=== PATIENT | female | born 1960 | race Caucasian/White ===

== ENCOUNTER → 2021-12-19 | Outpatient (CLI) | payer OTHER ==
[~2021-12-19] MED LIST: ANAPROX DS550 MG PO; ANTIVERT25 MG PO; ASPIRIN81 MG PO; ATIVAN0.5 MG PO; AUGMENTIN 875 M1 TAB PO; BACTRIM DS 8001 TA1 PO; CEFUROXIME AXE250 MG PO; CLARITIN10 MG PO; DAYPRO600 M1 PO; DEXILANT60 M1 PO; FLONASE0.05 MG/AC NS; IRON325 M1 PO; KEFTAB500 MG PO; KLOR-CON M1010 MEQ PO; LISINOPRIL HCTZ1 TA1 PO; MELOXICAM7.5 MG; METOPROLOL50 MG PO; MOTRIN800 MG PO; PRAVASTATIN SOD40 MG PO; PROTONIX40 MG PO; PYRIDIUM200 MG PO; SKELAXIN800 MG PO; VICODIN 5/500 505 MG PO; ZANTAC 150150 MG PO; ZITHROMAX Z PA250 MG PO; ZOFRAN ODT8 MG PO
== END | disposition home or self-care (01) ==
LOC: MAMMO 17:00
PROVIDERS: ATTEND Family Medicine
DX: Z12.31 Encounter for screening mammogram for malignant neoplasm of breast (principal)

== ENCOUNTER 2023-09-12 17:51 | Inpatient (IN) | payer OTHER ==
[~2023-09-12] VITALS: Ht 172.7 cm; Wt 81.6 kg
[2023-09-12 18:03] VITALS: BP 162/84
[2023-09-12] MEDS ORDERED: LISINOPRIL10 M1 PO (18:07)
[2023-09-12] MEDS ORDERED: VITAMIN D250 MCG PO (18:08)
[2023-09-12] MEDS ORDERED: ASPIRIN81 M1 PO (18:08)
[2023-09-12] MEDS ORDERED: Ondansetron Hydrochloride 4 MG/2 ML VIAL IV ONE (18:20)
[2023-09-12] MEDS ORDERED: SODIUM CHLORIDE 0.9% 1,000 ML IV SCH (18:20)
[2023-09-12 18:35] LABS: BILIRUBIN Negative (Negative); BLOOD 2+ (Negative); CLARITY Clear (Clear); COLOR Dark Yellow (Yellow); GLUCOSE Negative (Negative); KETONE Trace (Negative); LEUKO ESTERASE Trace (Negative); NITRITE Negative (Negative); SPECIFIC GRAVITY >= 1.030 (1.001-1.030)
[2023-09-12 18:43] LABS: CALCIUM OXALATE CRYSTALS 1+; MUCOUS 1+
[2023-09-12 18:55] LABS: BASO # 0.1 10*3/uL (0.0-0.1); BASO % 0.4 % (0.0-1.0); EOS # 0.1 10*3/uL (0.0-0.4); EOS % 0.6 % (1.0-4.0); HEMATOCRIT 40.3 % (37.0-47.0); LYMPH # 2.3 10*3/uL (1.3-4.4); MEAN CELL VOLUME 87.4 fl (81.0-99.0); MEAN CORPUSCULAR HGB 28.9 pg (27.0-31.0); MEAN PLATELET VOLUME 9.7 fl (9.6-12.3); MONO # 0.9 10*3/uL (0.1-1.0); MONO % 5.8 % (3.0-9.0); NEUT # 11.3 10*3/uL (2.3-7.9); NEUT % 76.9 % (47.0-73.0); PLATELET COUNT AUTOMATED 230 10*3/uL (130-400); RED BLOOD COUNT 4.61 10*6/uL (4.10-5.10); RED CELL DISTRI WIDTH 12.8 % (0-14.5); WHITE BLOOD COUNT 14.7 10*3/uL (4.8-10.8)
[2023-09-12 19:08] LABS: ACT PARTIAL THROMBO TIME 29.3 SECONDS (20.0-32.1)
[2023-09-12 19:17] LABS: ALKALINE PHOSPHATASE 71 U/L (46-116); BUN 15 mg/dl (9-23); CHLORIDE 107 mmol/L (98-107); LIPASE 27 U/L (12-53); POTASSIUM 3.5 mmol/L (3.4-5.1); SGPT/ALT 21 U/L (5-49); TOTAL PROTEIN 7.2 gm/dL (6.0-8.0)
[2023-09-12] MEDS ORDERED: Ceftriaxone Sodium 1 GM/10 ML SYR IV ONE (20:40)
[2023-09-12] MEDS ORDERED: Ondansetron Hydrochloride 4 MG/2 ML VIAL IV PRN (21:40)
[2023-09-12] MEDS ORDERED: MORPHINE Sulfate 2 MG/ML SYR IV PRN (21:40)
[2023-09-12] MEDS ORDERED: SODIUM CHLORIDE 0.9% 500 ML IV ONE (21:40)
[2023-09-12] MEDS ORDERED: TEMAZEPAM 15 MG CAP PO PRN (21:40)
[2023-09-12] MEDS ORDERED: Magnesium Hydroxide 30 ML UDC PO PRN (21:40)
[2023-09-12] MEDS ORDERED: Acetaminophen/Hydrocodone 5 MG/325 MG TABLET PO PRN (21:40)
[2023-09-12] MEDS ORDERED: BISACODYL 5 MG TAB PO PRN (21:40)
[2023-09-12] MEDS ORDERED: ACETAMINOPHEN 325 MG TAB PO PRN (21:40)
[2023-09-12] MEDS ORDERED: SODIUM CHLORIDE 0.9% 1,000 ML IV ONE (21:40)
[2023-09-13] VITALS: BP 131/64
[2023-09-13 05:41] LABS: ALKALINE PHOSPHATASE 62 U/L (46-116); BUN 12 mg/dl (9-23); CHLORIDE 111 mmol/L (98-107); POTASSIUM 3.8 mmol/L (3.4-5.1); SGPT/ALT 20 U/L (5-49); TOTAL PROTEIN 6.3 gm/dL (6.0-8.0)
[2023-09-13 05:54] VITALS: BP 131/57
[2023-09-13 05:58] LABS: BASO # 0.1 10*3/uL (0.0-0.1); BASO % 0.6 % (0.0-1.0); EOS # 0.3 10*3/uL (0.0-0.4); EOS % 2.7 % (1.0-4.0); HEMATOCRIT 35.3 % (37.0-47.0); LYMPH # 2.3 10*3/uL (1.3-4.4); LYMPH % 23.3 % (27.0-41.0); MEAN CELL VOLUME 87.8 fl (81.0-99.0); MEAN CORPUSCULAR HGB 29.4 pg (27.0-31.0); MEAN CORPUSCULAR HGB CONC 33.4 g/dl (33.0-37.0); MEAN PLATELET VOLUME 10.4 fl (9.6-12.3); MONO # 0.6 10*3/uL (0.1-1.0); MONO % 5.7 % (3.0-9.0); NEUT # 6.7 10*3/uL (2.3-7.9); NEUT % 67.3 % (47.0-73.0); PLATELET COUNT AUTOMATED 207 10*3/uL (130-400); RED BLOOD COUNT 4.02 10*6/uL (4.10-5.10); WHITE BLOOD COUNT 9.9 10*3/uL (4.8-10.8)
[2023-09-13 08:38] VITALS: BP 134/64
[2023-09-13] MEDS ORDERED: Metoprolol Tartrate 50 MG TAB PO SCH (10:00)
[2023-09-13] MEDS ORDERED: Enoxaparin Sodium 40 MG/0.4 ML SYR SC SCH (10:00)
[2023-09-13] MEDS ORDERED: Pantoprazole Sodium 40 MG TAB PO SCH (10:00)
[2023-09-13] MEDS ORDERED: LISINOPRIL 10 MG TAB PO SCH (10:00)
[2023-09-13] MEDS ORDERED: SIMVASTATIN 20 MG TAB PO SCH (10:00)
[2023-09-13] MEDS ORDERED: Cholecalciferol 2,000 UNIT TABLET (50 MCG) PO SCH (10:00)
[2023-09-13] MEDS ORDERED: ASPIRIN ENTERIC COATED 81 MG TAB PO SCH (10:00)
[2023-09-13 11:42] VITALS: BP 124/60
[2023-09-13 17:24] VITALS: BP 132/64
[2023-09-13 20:00] VITALS: BP 104/58
[2023-09-13] MEDS ORDERED: Ceftriaxone Sodium 1 GM in SYRINGE INFUSION 10 ML IV SCH (20:00)
[2023-09-14] VITALS: BP 141/65
[2023-09-14 04:22] LABS: BASO # 0.1 10*3/uL (0.0-0.1); BASO % 0.8 % (0.0-1.0); EOS # 0.4 10*3/uL (0.0-0.4); EOS % 5.5 % (1.0-4.0); LYMPH # 2.5 10*3/uL (1.3-4.4); LYMPH % 35.3 % (27.0-41.0); MEAN CELL VOLUME 88.7 fl (81.0-99.0); MEAN CORPUSCULAR HGB 28.8 pg (27.0-31.0); MEAN CORPUSCULAR HGB CONC 32.4 g/dl (33.0-37.0); MEAN PLATELET VOLUME 9.8 fl (9.6-12.3); MONO # 0.5 10*3/uL (0.1-1.0); MONO % 6.6 % (3.0-9.0); NEUT # 3.7 10*3/uL (2.3-7.9); NEUT % 51.7 % (47.0-73.0); PLATELET COUNT AUTOMATED 218 10*3/uL (130-400); RED BLOOD COUNT 4.17 10*6/uL (4.10-5.10); RED CELL DISTRI WIDTH 13.1 % (0-14.5); WHITE BLOOD COUNT 7.1 10*3/uL (4.8-10.8)
[2023-09-14 04:47] LABS: BUN 9 mg/dl (9-23); CHLORIDE 109 mmol/L (98-107); POTASSIUM 4.2 mmol/L (3.4-5.1)
[2023-09-14 08:00] VITALS: BP 120/54
[2023-09-14] MEDS ORDERED: AMOX-CLAV 875-1 EACH PO (13:00)
[2023-09-16] MEDS ORDERED: NITROFURANTOIN100 M8 PO (14:01)
== END 2023-09-14 13:18 | disposition home or self-care (01) | DRG 872 ==
LOC: ED 17:51 → EDHOLD 20:48 → 5E 09-13 17:05
PROVIDERS: Emergency Medicine; Internal Medicine; ADMIT Student in an Organized Health Care Education/Training Program; ATTEND Student in an Organized Health Care Education/Training Program
DX: A41.9 Sepsis, unspecified organism (principal); N39.0 Urinary tract infection, site not specified; R31.9 Hematuria, unspecified; R73.9 Hyperglycemia, unspecified; R31.29 Other microscopic hematuria; I10 Essential (primary) hypertension; E78.5 Hyperlipidemia, unspecified; K21.9 Gastro-esophageal reflux disease without esophagitis; Z90.710 Acquired absence of both cervix and uterus; Z90.49 Acquired absence of other specified parts of digestive tract; Z83.3 Family history of diabetes mellitus; Z82.3 Family history of stroke; Z79.82 Long term (current) use of aspirin; Z79.899 Other long term (current) drug therapy; Z88.1 Allergy status to other antibiotic agents

== ENCOUNTER 2023-11-18 22:31 | Emergency (ER) | payer OTHER ==
[~2023-11-18] VITALS: Ht 172.7 cm; Wt 86.2 kg
[~2023-11-18 22:31] MED LIST changes: +AMOX-CLAV 875-1 EACH PO; +ASPIRIN81 M1 PO; +LISINOPRIL10 M1 PO; +NITROFURANTOIN100 M8 PO; +VITAMIN D250 MCG PO
[2023-11-18 22:41] VITALS: BP 147/83
[2023-11-18 23:14] LABS: BASO % 0.7 % (0.0-1.0); EOS # 0.2 10*3/uL (0.0-0.4); EOS % 3.2 % (1.0-4.0); HEMATOCRIT 39.5 % (37.0-47.0); LYMPH # 2.6 10*3/uL (1.3-4.4); LYMPH % 43.9 % (27.0-41.0); MEAN CELL VOLUME 87.2 fl (81.0-99.0); MEAN CORPUSCULAR HGB 28.7 pg (27.0-31.0); MEAN CORPUSCULAR HGB CONC 32.9 g/dl (33.0-37.0); MEAN PLATELET VOLUME 9.8 fl (9.6-12.3); MONO # 0.4 10*3/uL (0.1-1.0); MONO % 6.7 % (3.0-9.0); NEUT # 2.7 10*3/uL (2.3-7.9); NEUT % 45.3 % (47.0-73.0); PLATELET COUNT AUTOMATED 230 10*3/uL (130-400); RED BLOOD COUNT 4.53 10*6/uL (4.10-5.10); WHITE BLOOD COUNT 5.9 10*3/uL (4.8-10.8)
[2023-11-18 23:35] LABS: ALKALINE PHOSPHATASE 72 U/L (46-116); BUN 15 mg/dl (9-23); CHLORIDE 110 mmol/L (98-107); LIPASE 41 U/L (12-53); POTASSIUM 3.5 mmol/L (3.4-5.1); SGPT/ALT 15 U/L (5-49); TOTAL PROTEIN 7.1 gm/dL (6.0-8.0)
[2023-11-18] MEDS ORDERED: MG-AL HYDROXIDE/SIMETICONE 30 ML UDC PO STA (23:49)
[2023-11-18] MEDS ORDERED: Dicyclomine Hydrochloride 20 MG/10 ML OSYR PO STA (23:49)
[2023-11-18] MEDS ORDERED: Lidocaine Hydrochloride 15 ML UDC PO STA (23:49)
== END 2023-11-19 00:36 | disposition home or self-care (01) ==
LOC: ED 22:31
PROVIDERS: Internal Medicine
DX: K21.9 Gastro-esophageal reflux disease without esophagitis (principal); G43.909 Migraine, unspecified, not intractable, without status migrainosus; Z88.1 Allergy status to other antibiotic agents; Z90.49 Acquired absence of other specified parts of digestive tract; Z90.710 Acquired absence of both cervix and uterus

== ENCOUNTER 2023-12-18 13:20 | Emergency (ER) | payer OTHER ==
[~2023-12-18] VITALS: Ht 172.7 cm; Wt 86.2 kg
[2023-12-18] MEDS ORDERED: Ketorolac Tromethamine 15 MG/ML VIAL IV ONE (15:25)
[2023-12-18] MEDS ORDERED: Ondansetron Hydrochloride 4 MG/2 ML VIAL IV ONE (15:25)
[2023-12-18 15:32] LABS: BASO # 0.1 10*3/uL (0.0-0.1); BASO % 0.8 % (0.0-1.0); EOS # 0.1 10*3/uL (0.0-0.4); EOS % 1.4 % (1.0-4.0); LYMPH # 2.2 10*3/uL (1.3-4.4); LYMPH % 33.8 % (27.0-41.0); MEAN CELL VOLUME 86.8 fl (81.0-99.0); MEAN CORPUSCULAR HGB 29.3 pg (27.0-31.0); MEAN CORPUSCULAR HGB CONC 33.8 g/dl (33.0-37.0); MEAN PLATELET VOLUME 9.6 fl (9.6-12.3); MONO # 0.4 10*3/uL (0.1-1.0); MONO % 5.7 % (3.0-9.0); NEUT # 3.9 10*3/uL (2.3-7.9); NEUT % 58.1 % (47.0-73.0); PLATELET COUNT AUTOMATED 232 10*3/uL (130-400); RED BLOOD COUNT 4.61 10*6/uL (4.10-5.10); RED CELL DISTRI WIDTH 13.2 % (0-14.5); WHITE BLOOD COUNT 6.6 10*3/uL (4.8-10.8)
[2023-12-18 15:49] LABS: ALKALINE PHOSPHATASE 75 U/L (46-116); BUN 10 mg/dl (9-23); CHLORIDE 109 mmol/L (98-107); SGPT/ALT 16 U/L (5-49); TOTAL PROTEIN 7.3 gm/dL (6.0-8.0)
[2023-12-18] MEDS ORDERED: BUPIVACAINE 0.5% 10 ML VIAL SC ONE (16:30)
[2023-12-18 16:48] VITALS: BP 143/71
[2023-12-18] MEDS ORDERED: TYLENOL EXTRA500 MG PO (16:56)
[2023-12-18] MEDS ORDERED: ASPERCREME LID1 EACH T (16:56)
[2023-12-18] MEDS ORDERED: Motrin,Rufen400 MG PO (16:56)
== END 2023-12-18 16:58 | disposition home or self-care (01) ==
LOC: ED 13:20
PROVIDERS: Emergency Medicine
DX: G43.909 Migraine, unspecified, not intractable, without status migrainosus (principal); M54.2 Cervicalgia; K21.9 Gastro-esophageal reflux disease without esophagitis; E78.5 Hyperlipidemia, unspecified; I10 Essential (primary) hypertension; Z88.0 Allergy status to penicillin; Z88.1 Allergy status to other antibiotic agents; Z79.2 Long term (current) use of antibiotics; Z79.899 Other long term (current) drug therapy; Z79.82 Long term (current) use of aspirin; Z90.49 Acquired absence of other specified parts of digestive tract; Z90.711 Acquired absence of uterus with remaining cervical stump

== ENCOUNTER → 2024-03-25 | Outpatient (CLI) | payer OTHER ==
[~2024-03-25] MED LIST changes: +ASPERCREME LID1 EACH T; +Motrin,Rufen400 MG PO; +TYLENOL EXTRA500 MG PO
== END | disposition home or self-care (01) ==
LOC: CARD 07:15
PROVIDERS: ATTEND Internal Medicine Cardiovascular Disease
DX: I07.1 Rheumatic tricuspid insufficiency (principal); I10 Essential (primary) hypertension; E78.5 Hyperlipidemia, unspecified; Z86.79 Personal history of other diseases of the circulatory system; Z82.49 Family history of ischemic heart disease and other diseases of the circulatory system

== ENCOUNTER 2024-08-02 09:19 | Inpatient (IN) | payer OTHER ==
[~2024-08-02] VITALS: Ht 172.7 cm; Wt 90.7 kg
[2024-08-02] VITALS (8 sets, daily range): BP systolic 122–152; BP diastolic 64–96
[2024-08-02] MEDS ORDERED: MORPHINE Sulfate 2 MG/ML SYR IV ONE (09:40)
[2024-08-02] MEDS ORDERED: Ketorolac Tromethamine 15 MG/ML VIAL IV ONE (09:40)
[2024-08-02] MEDS ORDERED: SODIUM CHLORIDE 0.9% 1,000 ML IV ONE (09:40)
[2024-08-02] MEDS ORDERED: Ondansetron Hydrochloride 4 MG/2 ML VIAL IV ONE (09:40)
[2024-08-02 10:05] LABS: BASO % 0.3 % (0.0-1.0); EOS # 0.1 10*3/uL (0.0-0.4); EOS % 0.8 % (1.0-4.0); HEMATOCRIT 40.8 % (37.0-47.0); MEAN CELL VOLUME 85.2 fl (81.0-99.0); MEAN CORPUSCULAR HGB 28.6 pg (27.0-31.0); MEAN CORPUSCULAR HGB CONC 33.6 g/dl (33.0-37.0); MEAN PLATELET VOLUME 9.8 fl (9.6-12.3); MONO # 1.1 10*3/uL (0.1-1.0); MONO % 8.8 % (3.0-9.0); NEUT # 10.3 10*3/uL (2.3-7.9); NEUT % 83.1 % (47.0-73.0); PLATELET COUNT AUTOMATED 235 10*3/uL (130-400); RED BLOOD COUNT 4.79 10*6/uL (4.10-5.10); RED CELL DISTRI WIDTH 12.2 % (0-14.5); WHITE BLOOD COUNT 12.4 10*3/uL (4.8-10.8)
[2024-08-02 10:24] LABS: BUN 11 mg/dl (9-23); CHLORIDE 104 mmol/L (98-107); POTASSIUM 3.9 mmol/L (3.4-5.1)
[2024-08-02] MEDS ORDERED: Lidocaine Hydrochloride 5 ML VIAL IV ONE (10:57)
[2024-08-02] MEDS ORDERED: ROCURONIUM BROMIDE 50 MG/5 ML SYRINGE IV ONE (10:57)
[2024-08-02] MEDS ORDERED: Midazolam Hydrochloride 2 MG/2 ML VIAL IV ONE (10:57)
[2024-08-02] MEDS ORDERED: Dexamethasone Sodium Phospha 4 MG/ML VIAL IV ONE (10:57)
[2024-08-02] MEDS ORDERED: PROPOFOL 200 MG/20 ML VIAL IV ONE (10:57)
[2024-08-02] MEDS ORDERED: fentaNYL CITRATE 100 MCG/2 ML VIAL IV ONE (10:57)
[2024-08-02] MEDS ORDERED: SUGAMMADEX SODIUM 200 MG/2 ML VIAL IV ONE (10:57)
[2024-08-02] MEDS ORDERED: SEVOFLURANE 250 ML BOT INH ONE (10:57)
[2024-08-02] MEDS ORDERED: Phenylephrine Hydrochloride 1 MG/10 ML SYRINGE IV ONE (10:57)
[2024-08-02] MEDS ORDERED: Succinylcholine Chloride 200 MG/10 ML SYRINGE IV ONE (10:57)
[2024-08-02 11:20] LABS: BILIRUBIN Negative (Negative); BLOOD 3+ (Negative); CLARITY Clear (Clear); COLOR Yellow (Yellow); GLUCOSE Negative (Negative); KETONE Negative (Negative); LEUKO ESTERASE Negative (Negative); NITRITE Negative (Negative); SPECIFIC GRAVITY 1.025 (1.001-1.030)
[2024-08-02] MEDS ORDERED: CEFEPIME HCL IN DEXTROSE 5 % 50 ML IV ONE (11:25)
[2024-08-02 11:30] LABS: BACTERIA 1+; MUCOUS TRACE; RBC 21-30 rbc/hpf (0-2)
[2024-08-02] MEDS ORDERED: TEMAZEPAM 15 MG CAP PO PRN (12:25)
[2024-08-02] MEDS ORDERED: BISACODYL 5 MG TAB PO PRN (12:25)
[2024-08-02] MEDS ORDERED: Magnesium Hydroxide 30 ML UDC PO PRN (12:25)
[2024-08-02] MEDS ORDERED: Acetaminophen/Hydrocodone 5 MG/325 MG TABLET PO PRN (12:25)
[2024-08-02] MEDS ORDERED: Ondansetron Hydrochloride 4 MG/2 ML VIAL IV PRN (12:25)
[2024-08-02] MEDS ORDERED: ACETAMINOPHEN 325 MG TAB PO PRN (12:25)
[2024-08-02] MEDS ORDERED: EPINEPHrine/Lidocaine Hydroc 20 ML VIAL ONE (12:42)
[2024-08-02] MEDS ORDERED: HYDROMORPHONE IV PRN (14:20)
[2024-08-02] MEDS ORDERED: HYDROmorphONE Hydrochloride 0.5 MG/0.5 ML SYRINGE IV PRN (14:35)
[2024-08-02] MEDS ORDERED: SODIUM CHLORIDE 0.9% 1,000 ML IV SCH (15:45)
[2024-08-02] MEDS ORDERED: VANCOMYCIN/WATER FOR INJ (PEG) 250 ML IV SCH (22:00)
[2024-08-02] MEDS ORDERED: METRONIDAZOLE 100 ML IV SCH (22:00)
[2024-08-03] VITALS: BP 112/57
[2024-08-03 04:00] VITALS: BP 114/63
[2024-08-03 05:36] LABS: ALKALINE PHOSPHATASE 61 U/L (46-116); BUN 17 mg/dl (9-23); CHLORIDE 106 mmol/L (98-107); POTASSIUM 3.8 mmol/L (3.4-5.1); SGPT/ALT 14 U/L (5-49); TOTAL PROTEIN 6.3 gm/dL (6.0-8.0)
[2024-08-03] MEDS ORDERED: Pantoprazole Sodium 40 MG TAB PO SCH (06:00)
[2024-08-03 06:09] LABS: BASO % 0.1 % (0.0-1.0); HEMATOCRIT 38.4 % (37.0-47.0); MEAN CELL VOLUME 87.5 fl (81.0-99.0); MEAN CORPUSCULAR HGB 28.5 pg (27.0-31.0); MEAN CORPUSCULAR HGB CONC 32.6 g/dl (33.0-37.0); MEAN PLATELET VOLUME 10.1 fl (9.6-12.3); MONO % 11.3 % (3.0-9.0); NEUT # 6.8 10*3/uL (2.3-7.9); NEUT % 76.8 % (47.0-73.0); PLATELET COUNT AUTOMATED 213 10*3/uL (130-400); RED BLOOD COUNT 4.39 10*6/uL (4.10-5.10); RED CELL DISTRI WIDTH 12.5 % (0-14.5); WHITE BLOOD COUNT 8.8 10*3/uL (4.8-10.8)
[2024-08-03 08:00] VITALS: BP 128/74
[2024-08-03] MEDS ORDERED: ATORVASTATIN CALCIUM 10 MG TAB PO SCH (10:00)
[2024-08-03] MEDS ORDERED: Ceftriaxone Sodium 1 GM in SYRINGE INFUSION 10 ML IV SCH (10:00)
[2024-08-03] MEDS ORDERED: LISINOPRIL 10 MG TAB PO SCH (10:00)
[2024-08-03] MEDS ORDERED: Enoxaparin Sodium 40 MG/0.4 ML SYR SC SCH (10:00)
[2024-08-03] MEDS ORDERED: Pneumococcal Vaccine Polyval 0.5 ML SYR IM SCH (10:00)
[2024-08-03] MEDS ORDERED: ASPIRIN ENTERIC COATED 81 MG TAB PO SCH (10:00)
[2024-08-03] MEDS ORDERED: Metoprolol Tartrate 50 MG TAB PO SCH (10:00)
[2024-08-03] MEDS ORDERED: METRONIDAZOLE 100 ML IV SCH (14:00)
[2024-08-03 16:00] VITALS: BP 117/65
[2024-08-03 20:00] VITALS: BP 151/83
[2024-08-03] MEDS ORDERED: IBUPROFEN 200 MG TAB PO ONE (22:05)
[2024-08-03] MEDS ORDERED: IBUPROFEN 800 MG TAB PO ONE (22:20)
[2024-08-03] MEDS ORDERED: Ketorolac Tromethamine 15 MG/ML VIAL IV ONE (23:55)
[2024-08-04] VITALS: BP 118/81
[2024-08-04 06:39] LABS: BASO % 0.1 % (0.0-1.0); EOS % 0.3 % (1.0-4.0); HEMATOCRIT 34.9 % (37.0-47.0); MEAN CELL VOLUME 87.5 fl (81.0-99.0); MEAN CORPUSCULAR HGB 28.3 pg (27.0-31.0); MEAN CORPUSCULAR HGB CONC 32.4 g/dl (33.0-37.0); MEAN PLATELET VOLUME 9.9 fl (9.6-12.3); MONO # 0.6 10*3/uL (0.1-1.0); NEUT # 7.6 10*3/uL (2.3-7.9); NEUT % 81.6 % (47.0-73.0); PLATELET COUNT AUTOMATED 202 10*3/uL (130-400); RED BLOOD COUNT 3.99 10*6/uL (4.10-5.10); RED CELL DISTRI WIDTH 12.5 % (0-14.5); WHITE BLOOD COUNT 9.3 10*3/uL (4.8-10.8)
[2024-08-04 07:21] LABS: BUN 15 mg/dl (9-23); CHLORIDE 108 mmol/L (98-107); POTASSIUM 3.3 mmol/L (3.4-5.1)
[2024-08-04 08:00] VITALS: BP 179/86
[2024-08-04] MEDS ORDERED: POTASSIUM CHLORIDE 20 MEQ TAB PO ONE (08:35)
[2024-08-04 09:08] VITALS: BP 140/78
[2024-08-04 12:00] VITALS: BP 145/84
[2024-08-04] MEDS ORDERED: PERCOCET 5-3251 EACH PO (13:37)
[2024-08-04] MEDS ORDERED: LEVOFLOXACIN500 MG PO (13:37)
[2024-08-04] MEDS ORDERED: METRONIDAZOLE500 M1 PO (13:37)
[2024-08-04] MEDS ORDERED: AMOX-CLAV 875-1 EACH PO (13:43)
[2024-08-04 16:00] VITALS: BP 148/85
[2024-08-05] MEDS ORDERED: POTASSIUM CHLORIDE 20 MEQ TAB PO SCH (10:00)
== END 2024-08-04 17:13 | disposition home or self-care (01) | DRG 853 ==
LOC: ED 09:19 → EDHOLD 11:13 → ICCU 11:13 → 4E 08-03 17:04
PROVIDERS: Emergency Medicine; Internal Medicine; Student in an Organized Health Care Education/Training Program; ADMIT Internal Medicine; ATTEND Internal Medicine
PROC: 0DTJ4ZZ Resection of Appendix, Percutaneous Endoscopic Approach (ICD-10-PCS; principal; 2024-08-02)
DX: A41.9 Sepsis, unspecified organism (principal); K35.32 Acute appendicitis with perforation, localized peritonitis, and gangrene, without abscess; K21.9 Gastro-esophageal reflux disease without esophagitis; E87.6 Hypokalemia; E78.49 Other hyperlipidemia; I10 Essential (primary) hypertension; R73.9 Hyperglycemia, unspecified; D72.821 Monocytosis (symptomatic); Z90.49 Acquired absence of other specified parts of digestive tract; Z90.710 Acquired absence of both cervix and uterus; Z84.1 Family history of disorders of kidney and ureter; Z82.3 Family history of stroke; Z88.0 Allergy status to penicillin; Z88.8 Allergy status to other drugs, medicaments and biological substances; Z79.82 Long term (current) use of aspirin; Z79.899 Other long term (current) drug therapy

== ENCOUNTER 2024-08-09 02:18 | Inpatient (IN) | payer OTHER ==
[~2024-08-09] VITALS: Ht 172.7 cm; Wt 94.8 kg
[~2024-08-09 02:18] MED LIST changes: +LEVOFLOXACIN500 MG PO; +METOPROLOL TART50 M1 PO; -METOPROLOL50 MG PO; +METRONIDAZOLE500 M1 PO; +PERCOCET 5-3251 EACH PO
[2024-08-09 02:52] VITALS: BP 148/92
[2024-08-09] MEDS ORDERED: SODIUM CHLORIDE 0.9% 1,000 ML IV ONE ×3 (03:00→08:00)
[2024-08-09] MEDS ORDERED: IOHEXOL 300 MG/ML 100 ML VIAL IV ONE (03:10)
[2024-08-09 03:18] LABS: HEMATOCRIT 37.4 % (37.0-47.0); MEAN CORPUSCULAR HGB 28.2 pg (27.0-31.0); MEAN CORPUSCULAR HGB CONC 33.2 g/dl (33.0-37.0); MEAN PLATELET VOLUME 8.9 fl (9.6-12.3); PLATELET COUNT AUTOMATED 435 10*3/uL (130-400); RED CELL DISTRI WIDTH 12.5 % (0-14.5); WHITE BLOOD COUNT 11.5 10*3/uL (4.8-10.8)
[2024-08-09 03:19] LABS: MANUAL DIFF REFLEX YES
[2024-08-09 03:39] LABS: ALKALINE PHOSPHATASE 101 U/L (46-116); BUN 13 mg/dl (9-23); CHLORIDE 103 mmol/L (98-107); POTASSIUM 3.6 mmol/L (3.4-5.1); SGPT/ALT 29 U/L (5-49); TOTAL PROTEIN 6.5 gm/dL (6.0-8.0)
[2024-08-09 03:40] LABS: ATYPICAL LYMPHS 1 % (0-0); BASOPHILS 1 % (0-1); BURR CELLS FEW; PLATELET SUFFICIENCY HIGH (NORMAL); POLYCHROMASIA SLIGHT; TOTAL CELLS COUNTED 100 #CELLS
[2024-08-09] MEDS ORDERED: Ondansetron Hydrochloride 4 MG/2 ML VIAL IV ONE (03:40)
[2024-08-09] MEDS ORDERED: Prochlorperazine Edisylate 10 MG/2 ML VIAL IV ONE (05:30)
[2024-08-09] MEDS ORDERED: METRONIDAZOLE 100 ML IV ONE (06:50)
[2024-08-09] MEDS ORDERED: Ceftriaxone Sodium 1 GM/10 ML SYR IV ONE (06:50)
[2024-08-09] MEDS ORDERED: BISACODYL 5 MG TAB PO PRN (07:40)
[2024-08-09] MEDS ORDERED: ACETAMINOPHEN 325 MG TAB PO PRN (07:40)
[2024-08-09] MEDS ORDERED: TEMAZEPAM 15 MG CAP PO PRN (07:40)
[2024-08-09] MEDS ORDERED: Ondansetron Hydrochloride 4 MG/2 ML VIAL IV PRN (07:40)
[2024-08-09] MEDS ORDERED: Acetaminophen/Hydrocodone 5 MG/325 MG TABLET PO PRN (07:40)
[2024-08-09 12:00] VITALS: BP 161/94
[2024-08-09] MEDS ORDERED: CEFEPIME HCL IN DEXTROSE 5 % 50 ML IV SCH (12:00)
[2024-08-09] MEDS ORDERED: METRONIDAZOLE 100 ML IV SCH (14:00)
[2024-08-09] MEDS ORDERED: SODIUM CHLORIDE 0.9% 1,000 ML IV SCH (15:00)
[2024-08-09] MEDS ORDERED: Prochlorperazine Edisylate 10 MG/2 ML VIAL IV PRN (15:00)
[2024-08-09 16:00] VITALS: BP 151/89
[2024-08-09 20:00] VITALS: BP 155/77
[2024-08-09] MEDS ORDERED: Metoprolol Tartrate 50 MG TAB PO SCH (21:20)
[2024-08-09] MEDS ORDERED: LISINOPRIL 10 MG TAB PO SCH (21:20)
[2024-08-10] VITALS: BP 152/75
[2024-08-10] MEDS ORDERED: PRAVASTATIN SOD80 MG PO (02:27)
[2024-08-10] MEDS ORDERED: LISINOPRIL30 MG PO (02:28)
[2024-08-10] MEDS ORDERED: Pantoprazole Sodium 40 MG VIAL IV SCH (06:00)
[2024-08-10 07:27] LABS: BASO % 0.4 % (0.0-1.0); EOS # 0.2 10*3/uL (0.0-0.4); EOS % 1.5 % (1.0-4.0); MEAN CELL VOLUME 85.3 fl (81.0-99.0); MEAN CORPUSCULAR HGB 28.3 pg (27.0-31.0); MEAN CORPUSCULAR HGB CONC 33.1 g/dl (33.0-37.0); MEAN PLATELET VOLUME 9.3 fl (9.6-12.3); MONO # 0.7 10*3/uL (0.1-1.0); MONO % 6.6 % (3.0-9.0); NEUT # 7.4 10*3/uL (2.3-7.9); NEUT % 73.6 % (47.0-73.0); PLATELET COUNT AUTOMATED 428 10*3/uL (130-400); RED BLOOD COUNT 3.75 10*6/uL (4.10-5.10); RED CELL DISTRI WIDTH 12.9 % (0-14.5); WHITE BLOOD COUNT 10.1 10*3/uL (4.8-10.8)
[2024-08-10 07:30] LABS: BUN 10 mg/dl (9-23); CHLORIDE 106 mmol/L (98-107); POTASSIUM 3.2 mmol/L (3.4-5.1)
[2024-08-10 08:00] VITALS: BP 178/82
[2024-08-10] MEDS ORDERED: Ceftriaxone Sodium 1 GM,IV 1 EA in SYRINGE INFUSION 10 ML IV SCH (08:00)
[2024-08-10] MEDS ORDERED: Ceftriaxone Sodium 2 GM in SYRINGE INFUSION 20 ML IV SCH (08:00)
[2024-08-10] MEDS ORDERED: POTASSIUM CHLORIDE 20 MEQ TAB PO ONE (09:00)
[2024-08-10] MEDS ORDERED: LISINOPRIL 10 MG TAB PO SCH ×2 (10:00)
[2024-08-10] MEDS ORDERED: Cholecalciferol 2,000 UNIT TABLET (50 MCG) PO SCH (10:00)
[2024-08-10] MEDS ORDERED: Metoprolol Tartrate 50 MG TAB PO SCH ×2 (10:00)
[2024-08-10] MEDS ORDERED: ATORVASTATIN CALCIUM 10 MG TAB PO SCH (10:00)
[2024-08-10] MEDS ORDERED: TEMAZEPAM 15 MG CAP PO ONE (11:10)
[2024-08-10 11:22] VITALS: BP 160/90
[2024-08-10 16:00] VITALS: BP 161/92
[2024-08-10 20:00] VITALS: BP 148/70
[2024-08-11] VITALS (12 sets, daily range): BP systolic 135–168; BP diastolic 66–90
[2024-08-11] MEDS ORDERED: CEFEPIME2 GM/100 M IV ×2 (00:05→07:52)
[2024-08-11] MEDS ORDERED: METRONIDAZOLE500 M1 PO (00:05)
[2024-08-11 06:46] LABS: BASO # 0.1 10*3/uL (0.0-0.1); BASO % 0.4 % (0.0-1.0); EOS # 0.2 10*3/uL (0.0-0.4); EOS % 1.5 % (1.0-4.0); HEMATOCRIT 34.1 % (37.0-47.0); MEAN CELL VOLUME 84.8 fl (81.0-99.0); MEAN CORPUSCULAR HGB 28.4 pg (27.0-31.0); MEAN CORPUSCULAR HGB CONC 33.4 g/dl (33.0-37.0); MEAN PLATELET VOLUME 9.3 fl (9.6-12.3); MONO # 0.6 10*3/uL (0.1-1.0); MONO % 5.5 % (3.0-9.0); NEUT # 8.1 10*3/uL (2.3-7.9); NEUT % 72.7 % (47.0-73.0); PLATELET COUNT AUTOMATED 475 10*3/uL (130-400); RED BLOOD COUNT 4.02 10*6/uL (4.10-5.10); RED CELL DISTRI WIDTH 12.6 % (0-14.5); WHITE BLOOD COUNT 11.2 10*3/uL (4.8-10.8)
[2024-08-11 07:00] LABS: ACT PARTIAL THROMBO TIME 28.3 SECONDS (20.0-32.1)
[2024-08-11 07:10] LABS: BUN 9 mg/dl (9-23); CHLORIDE 105 mmol/L (98-107); POTASSIUM 3.4 mmol/L (3.4-5.1)
[2024-08-11] MEDS ORDERED: SODIUM CHLORIDE 0.9% 300 ML IV ONE (09:54)
[2024-08-11] MEDS ORDERED: Lidocaine Hydrochloride 5 ML AMP ONE (10:00)
[2024-08-11] MEDS ORDERED: SODIUM BICARBONATE 4.2% 5 ML VIAL ONE (10:01)
[2024-08-12] VITALS: BP 141/74
[2024-08-12 08:00] VITALS: BP 130/72
[2024-08-12] MEDS ORDERED: PERCOCET 5-3251 EACH PO (11:36)
== END 2024-08-12 12:58 | disposition home health service (06) | DRG 757 ==
LOC: ED 02:18 → 4E 07:15 → EDHOLD 07:15 → 4E 08:38
PROVIDERS: Internal Medicine; ADMIT Internal Medicine; ATTEND Internal Medicine
PROC: 0W9J30Z Drainage of Pelvic Cavity with Drainage Device, Percutaneous Approach (ICD-10-PCS; principal; 2024-08-11)
PROC: 0W9J30Z Drainage of Pelvic Cavity with Drainage Device, Percutaneous Approach (ICD-10-PCS; 2024-08-11)
PROC: 05HY33Z Insertion of Infusion Device into Upper Vein, Percutaneous Approach (ICD-10-PCS; 2024-08-11)
DX: N73.9 Female pelvic inflammatory disease, unspecified (principal); E43 Unspecified severe protein-calorie malnutrition; K65.1 Peritoneal abscess; K56.7 Ileus, unspecified; J90 Pleural effusion, not elsewhere classified; I34.1 Nonrheumatic mitral (valve) prolapse; E87.6 Hypokalemia; R73.9 Hyperglycemia, unspecified; I10 Essential (primary) hypertension; E78.5 Hyperlipidemia, unspecified; K21.9 Gastro-esophageal reflux disease without esophagitis; D64.9 Anemia, unspecified; K57.30 Diverticulosis of large intestine without perforation or abscess without bleeding; Z88.0 Allergy status to penicillin; Z88.1 Allergy status to other antibiotic agents; Z88.8 Allergy status to other drugs, medicaments and biological substances; Z79.899 Other long term (current) drug therapy; Z82.3 Family history of stroke; Z90.710 Acquired absence of both cervix and uterus; Z90.49 Acquired absence of other specified parts of digestive tract; Z83.3 Family history of diabetes mellitus; Z79.82 Long term (current) use of aspirin; Z79.1 Long term (current) use of non-steroidal anti-inflammatories (NSAID); Z68.31 Body mass index [BMI] 31.0-31.9, adult